=== PATIENT | female | born 1960 | race Caucasian/White ===

== ENCOUNTER 2023-06-25 20:18 | Emergency (ER) | payer OTHER, SELFPAY ==
--- NOTE | ~2023-06-25 | CT_ITS ---
EXAMINATION: CT abdomen pelvis w con DATE: 06/26/2023 00:23 INDICATION: Acute cholecystitis. TECHNIQUE: Computed tomography (CT) of the abdomen and pelvis was performed with 100 mL Omnipaque 350 intravenous contrast. Automated exposure control and iterative reconstruction technique were employe d. The dose-length product was 776.41 mGy-cm. COMPARISON: None. FINDINGS: The visualized portions of the lung bases demonstrate mild atelectasis. No pleural effusion . The heart size is normal. No pericardial effusion. There is a small sliding hiatal hernia. There is diffuse hepatic steatosis. There are gallstones in the gallbladder, which is normal in size. The spl een, pancreas, adrenal glands, and kidneys are normal. There is an umbilical hernia containing fat. T he appendix is normal. There are no dilated loops of bowel. There is diverticulosis of the colon with out evidence of diverticulitis. There is a 2.5 cm subserosal fibroid. There are no pathologically enl arged lymph nodes. There is no ascites. There is severe lower lumbar spondylosis. IMPRESSION: 1. Cholelithiasis. 2. Umbilical hernia containing fat. 3. Small sliding hiatal hernia. Reviewed, dictated and finalized at location A.
[2023-06-25 20:21] VITALS: BP 149/81; PULSE 71; RESP 16; TEMP 36.1; O2SAT 100
[2023-06-25 20:35] LABS: Basophils Absolute Auto 0.1 K/mm3 (0.0-0.1); Basophils Percent Auto 0.5 % (0.2-1.2); Eosinophils Percent Auto 0.3 % (0-4.4); Hemoglobin 14.5 g/dL (12.0-15.0); Immature Granulocyte Absolute 0.06 K/mm3 (0.00-0.031); Immature Granulocyte Percent A 0.5 % (0-0.5); Lymphocytes Absolute Auto 0.96 K/mm3 (0.9-3.2); Lymphocytes Percent Auto 7.5 % (18.3-44.2); Mean Corpuscular HGB Conc 33.7 g/dl (32-36); Mean Corpuscular Volume 91.9 fl (80-100); Mean Platelet Volume 9.1 fl (7.4-10.4); Monocytes Absolute Auto 0.5 K/mm3 (0.1-0.6); Monocytes Percent Auto 3.6 % (2.6-8.5); Neutrophils Absolute Auto 11.3 K/mm3 (1.3-6.7); Neutrophils Percent Auto 87.6 % (45.5-73.1); Platelet Count Result 350 k/mm3 (150-375); Red Blood Count 4.68 M/mm3 (4.2-5.4); Red Cell Distribution Width 12.8 % (11.5-14.5); White Blood Count 12.8 K/mm3 (4.5-10.0)
[2023-06-25 20:55] LABS: Alanine Aminotransferase 27 U/L (6-35); Albumin Level 4.8 g/dL (3.5-5.1); Alkaline Phosphatase 108 U/L (38-126); Anion Gap 9 mmol/L (8-16); Aspartate Amino Transferase 26 U/L (14-36); Bilirubin,Total 0.5 mg/dL (0.2-1.3); Blood Urea Nitrogen 17 mg/dL (7-17); Calcium 9.7 mg/dL (8.4-10.2); Carbon Dioxide 26 mmol/L (22-30); Chloride 102 mmol/L (98-107); Estimated CRCL calculation 54 ml/min; Estimated Glomerular Filt Rate 56; Glucose 137 mg/dL (65-110); Lipase 143 U/L (23-300); Potassium 4.4 mmol/L (3.4-5.0); Sodium 137 mmol/L (137-145)
--- NOTE | 2023-06-25 23:34 | ECG_ITS ---
Measurements Intervals [place] Rate: 105 P: 48 NE: 148 QRS: 4 QRSD: 101 T: 10 QT: 355 QTc: 470 Interpretive Statements SINUS TACHYCARDIA LOW QRS VOLTAGE IN PRECORDIAL LEADS [QRS DEFLECTION < 1.0 mV IN CHEST LEADS] ABNORMAL RHYTHM ECG NO PREVIOUS ECG AVAILABLE FOR COMPARISON Electronically Signed On 06-26-2023 15:19:56 CDT by Doris Babb M.D.
--- NOTE | 2023-06-25 23:36 | ED.ABDPAIN ---
HPI - Abdominal Pain General Chief Complaint: Abdominal Pain <PEPE Flanagan Last Filed: 06/26/23 03:45> Stated Complaint: abd pain, vomiting <PEPE Flanagan Last Filed: 06/26/23 03:45> Time Seen by Provider: 06/25/23 23:22 <Corrie Rodriguez PA-C - Last Filed: 06/26/23 03:45> History of Present Illness HPI narrative: 63-year-old female reports for evaluation for epigastric and right upper quadrant pain since 1300 today. Patient states that she sandwich for lunch and shortly after began developing her symptoms. States the pain started with scapular pain and then transition to her abdomen. She reports approximately 7 episodes of vomiting with associated nausea. Last bowel movement today was normal. Denies diarrhea, hematemesis, coffee-ground emesis, fever, body aches or chills, dysuria or hematuria, flank pain. She has not taken anything for pain. <PEPE Flanagan Last Filed: 06/26/23 03:45> Related Data Allergies/Adverse Reactions: Allergies Allergy/AdvReac Type Severity Reaction Status Date / Time No Known Allergies Allergy Verified 06/26/23 00:02 <PEPE Flanagan Last Filed: 06/26/23 03:45> Review of Systems Review of Systems: CONSTITUTIONAL: Denies fever, chills EYES: Denies visual changes, redness, or discharge. ENT: Denies rhinorrhea, congestion, sore throat, or otalgia. CARDIOVASCULAR: Denies chest pain, palpitations, or edema. RESPIRATORY: Denies cough or dyspnea. GASTROINTESTINAL: See HPI GENITOURINARY: Denies dysuria or hematuria. SKIN: Denies rash or itching. MUSCULOSKELETAL: See HPI NEUROLOGIC: Denies headache, numbness, dizziness, or weakness. PSYCHIATRIC: Denies anxiety or depression. <PEPE Flanagan Last Filed: 06/26/23 03:45> Exam Narrative: GENERAL: Well-appearing, in no acute distress. Patient resting comfortably in exam bed. She is pleasant and conversational. HEAD: Normocephalic EYES: PERRLA ENT: Nares clear. Mucous membranes moist. Oropharynx without tonsillar hypertrophy exudate or other lesions. NECK: Supple. CHEST: No respiratory distress. Clear to auscultation, no adventitious breath sounds. HEART: Regular rate and rhythm. No murmur heard. Normal peripheral pulses. ABDOMEN: Normal active bowel sounds. Abdomen soft with tenderness and guarding in the right upper quadrant. Positive Hernandez's. No CVA tenderness. No rebound or rigidity. No overlying skin changes. BACK: No midline thoracolumbar spinous tenderness, step-offs or deformities. EXTREMITIES: Normal range of motion. No edema. SKIN: Warm, dry, no rash. NEURO: No focal deficits. Alert and oriented x3. PSYCH: Normal mood and affect. <Corrie Rodriguez PA-C - Last Filed: 06/26/23 03:45> Course BRIDGE WORKER/PA Physician Supervision This is a was performed by both a physician and an APC. I performed all aspects of the MDM as documented w/ the following additions: 63-year-old female presenting with right upper quadrant abdominal pain. Improved with pain medicine. Mild white count but no fevers. No elevation in liver enzymes. Point of care all right upper quadrant ultrasound was reassuring. Suspect biliary colic. Discharge primary care and general surgery follow-upAll questions answered. Patient in agreement w/ disposition. <Unruly Castelan MD - Last Filed: 06/26/23 07:00> Vital Signs Vital signs: Vital Signs Temperature 96.9 F L 06/25/23 20:21 Pulse Rate 71 06/25/23 20:21 Respiratory Rate 16 06/25/23 20:21 Blood Pressure 149/81 H 06/25/23 20:21 Pulse Oximetry 100 06/25/23 20:21 Oxygen Delivery Room Air 06/25/23 20:21 Temperature 96.9 F L 06/25/23 20:21 Pulse Rate 100 06/26/23 04:03 Respiratory Rate 18 06/26/23 04:03 Blood Pressure 104/68 06/26/23 04:03 Pulse Oximetry 100 06/26/23 04:03 Oxygen Delivery Room Air 06/25/23 20:21 <Corrie Rodriguez PA-C - Last Filed: 06/26/23 03:45>
[2023-06-26] MEDS: SODIUM CHLORIDE 0.9% IV 1,000 ML 999 ML IV CONT (00:01)
[2023-06-26] MEDS: ONDANSETRON INJ 4 MG/2 ML VIAL IV PUSH (00:02)
[2023-06-26] MEDS: KETOROLAC 30 MG/ML VIAL (*BKC) IV PUSH (00:02)
[2023-06-26 00:28] LABS: Appearance Urine Clear (Clear); Bacteria Urine None Seen /hpf; Bilirubin Urine Negative (Negative); Blood Urine Negative (Negative); Color Urine Yellow (Yellow); Glucose Urine UA Negative (Negative); Ketones Urine 1+ mg/dL (Negative); Leukocyte Esterase Ur Trace LEU/UL (Negative); Nitrate Urine Negative (Negative); Non Pathogenic Casts 0-2; Protein Urine 1+ mg/dL (Negative); RBC Urine 0-2 /hpf (0-2); Specific Grav Ur 1.023 (1.001-1.035); Squamous Epithelial Cell Urine None seen /hpf (Few); Urobilinogen Urine 0.2 mg/dL (<2.0); WBC Urine 0-5 /hpf; pH Urine 7.5 (5.0-9.0)
[2023-06-26 01:00] LABS: Add Urine Microscopic? YES
[2023-06-26] MEDS: MORPHINE SULFATE (*CRX) 4 MG/ML INJ IV PUSH (01:53)
[2023-06-26 03:15] VITALS: BP 119/69; O2SAT 98
[2023-06-26 03:16] VITALS: O2SAT 97
[2023-06-26 03:30] VITALS: O2SAT 98
[2023-06-26 03:31] VITALS: BP 112/77; O2SAT 100
[2023-06-26 03:45] VITALS: BP 104/64; O2SAT 99
[2023-06-26 04:03] VITALS: BP 104/68; PULSE 100; RESP 18; O2SAT 100
--- NOTE | 2023-06-26 12:22 | ED.ABDPAIN ---
HPI - Abdominal Pain General Chief Complaint: Abdominal Pain Stated Complaint: abd pain, vomiting Time Seen by Provider: 06/25/23 23:22 Related Data Allergies Allergy/AdvReac Type Severity Reaction Status Date / Time No Known Allergies Allergy Verified 06/26/23 00:02 Course HISTORICAL MANUSCRIPTS CURATOR/PA Physician Supervision Patient return to the ED due to being unable to have her prescription filled since there is no SHRUTI number on the prescription. Patient prescription was reprinted Vital Signs Vital signs: Vital Signs Temperature 96.9 F L 06/25/23 20:21 Pulse Rate 71 06/25/23 20:21 Respiratory Rate 16 06/25/23 20:21 Blood Pressure 149/81 H 06/25/23 20:21 Pulse Oximetry 100 06/25/23 20:21 Oxygen Delivery Room Air 06/25/23 20:21 Temperature 96.9 F L 06/25/23 20:21 Pulse Rate 100 06/26/23 04:03 Respiratory Rate 18 06/26/23 04:03 Blood Pressure 104/68 06/26/23 04:03 Pulse Oximetry 100 06/26/23 04:03 Oxygen Delivery Room Air 06/25/23 20:21 MDM - Abdominal Pain Lab Data 06/25/23 20:27 06/25/23 20:27 Labs: Lab Results 06/25/23 06/26/23 Range/Units 20:27 00:07 WBC 12.8 H (4.5-10.0) K/mm3 RBC 4.68 (4.2-5.4) M/mm3 Hgb 14.5 (12.0-15.0) g/dL Hct 43.0 (37.0-47.0) % MCV 91.9 (80-100) fl MCH 31.0 (26-34) pg MCHC 33.7 (32-36) g/dl RDW 12.8 (11.5-14.5) % Plt Count 350 (150-375) k/mm3 MPV 9.1 (7.4-10.4) fl Immature Gran % (Auto) 0.5 (0-0.5) % Neut % (Auto) 87.6 H (45.5-73.1) % Lymph % (Auto) 7.5 L (18.3-44.2) % [place] % (Auto) 3.6 (2.6-8.5) % Eos % (Auto) 0.3 (0-4.4) % Baso % (Auto) 0.5 (0.2-1.2) % Lymph # (Auto) 0.96 (0.9-3.2) K/mm3 [place] # (Auto) 0.5 (0.1-0.6) K/mm3 Eos # (Auto) 0.0 (0-0.3) K/mm3 Baso # (Auto) 0.1 (0.0-0.1) K/mm3 Abs Immat Gran (auto) 0.06 H (0.00-0.031) K/mm3 Absolute Neuts (auto) 11.3 H (1.3-6.7) K/mm3 Absolute Nucleated RBC 0.0 (0.0-0.012) K/mm3 Nucleated RBC % 0.0 (0.0-0.2) % Sodium 137 (137-145) mmol/L Potassium 4.4 (3.4-5.0) mmol/L Chloride 102 (98-107) mmol/L Carbon Dioxide 26 (22-30) mmol/L Anion Gap 9 (8-16) mmol/L BUN 17 (7-17) mg/dL Creatinine 1.00 (0.7-1.0) mg/dL Estim Creat Clear Calc 54 ml/min Estimated GFR 56 L (59 - ) Glucose 137 H (65-110) mg/dL Calcium 9.7 (8.4-10.2) mg/dL Total Bilirubin 0.5 (0.2-1.3) mg/dL AST 26 (14-36) U/L ALT 27 (6-35) U/L Alkaline Phosphatase 108 (38-126) U/L Total Protein 9.0 H (6.3-8.2) g/dL Albumin 4.8 (3.5-5.1) g/dL Lipase 143 (23-300) U/L Urine Color Yellow (Yellow) Urine Appearance Clear (Clear) Urine pH 7.5 (5.0-9.0) Ur Specific [place] 1.023 (1.001-1.035) Urine Protein 1+ H (Negative) mg/dL Urine Glucose (UA) Negative (Negative) mg/dL Urine Ketones 1+ H (Negative) mg/dL Ur Blood (Man) Negative (Negative) Urine Nitrate Negative (Negative) Urine Bilirubin Negative (Negative) Urine Urobilinogen 0.2 (<2.0) mg/dL Leukocyte Esterase Rfl Trace H (Negative) TRAVIS/UL Urine RBC 0-2 (0-2) /hpf Urine WBC 0-5 /hpf Ur Squamous Epith Cells None seen (Few) /hpf Urine Bacteria None seen /hpf Urine Casts 0-2 Imaging Data Radiologist's impression: ITS Impressions Abdomen/Pelvis CT 06/26/23 06:09 IMPRESSION: 1. Cholelithiasis. 2. Umbilical hernia containing fat. 3. Small sliding hiatal hernia. Discharge Plan Discharge Clinical Impression: Biliary colic Patient Disposition: Home, Self-Care Condition: Stable Instructions: Antibiotic Form, Biliary Colic (ED) Additional Instructions: You were evaluated in the ED for abdominal pain. Your labs and imaging are reassuring. You CT scan shows gallstones, uterine fibroids and fatty liver. The gallstones are likely the cause of your pain as discussed. I have sent pain and nausea medications to the pharmacy.
== END 2023-06-26 04:08 | disposition home or self-care (01) ==
PROVIDERS: Emergency Medicine; Emergency Provider Physician Assistant; PCP Family Medicine
DX: K80.70 Calculus of gallbladder and bile duct without cholecystitis without obstruction (principal); K44.9 Diaphragmatic hernia without obstruction or gangrene; R00.0 Tachycardia, unspecified
CPT/HCPCS: 36415; 74177; 80053; 81001; 83690; 85025; 93005; 96361; 96374; 96375; 99284; J1885; J2270; J2405; J7030; Q9967

== ENCOUNTER 2023-07-26 08:30 | Outpatient (CLI) | payer OTHER, SELFPAY ==
[2023-07-26 09:06] LABS: Amylase 98 U/L (30-110)
== END 2023-07-26 08:31 | disposition home or self-care (01) ==
PROVIDERS: Visit Provider Surgery
DX: Z01.812 Encounter for preprocedural laboratory examination (principal); K80.10 Calculus of gallbladder with chronic cholecystitis without obstruction
CPT/HCPCS: 36415; 82150; 86850; 86900; 86901

== ENCOUNTER 2023-07-31 00:28 | Day surgery (SDC) | payer OTHER, SELFPAY ==
[2023-07-24 13:37] VITALS: BMI 28.9
--- NOTE | 2023-07-24 13:42 | PC.NURSE ---
Report to the Outpatient Waiting Room, entrance under the green pavilion located off [facility], at time 11:30 on date 07/31/23. Planned Procedure Time: 1:30. Time changes happen often and if your time is changed the preop area will call you the afternoon before. - You and your visitor will be asked to self-screen and do not enter if you have any COVID symptoms. - A mask is optional within the hospital at this time. Patients may have clear liquids (water, carbonated beverages, clear teas, apple juice) until 3 hours prior to surgery (10:30) with a maximum of 20 ounces. - No food from midnight until time of surgery Take the following medications with a SIP of water the morning of surgery: N/A DO NOT STOP ANY OF YOUR OTHER PRESCRIPTION MEDICATIONS PRIOR TO SURGERY ?EXCEPT THE FOLLOWING Medications to discontinue per physician: N/A Date to take last dose: N/A Please no make-up, nail [place], hairspray, perfume, deodorant, or body powder the day of surgery. No jewelry (including any body piercings) or valuables the day of surgery, leave them at home. Please take a shower or bath the night before, or the morning of, surgery with an antibacterial soap (HIBICLENS). Wear comfortable, loose fitting clothing. - Jewelry must be removed prior to entering the operating room. Rings and piercings that are not removed may be cut off. - The hospital will not accept responsibility for valuables. - Please leave all valuables, including medications, at home the day of surgery. If you are going home after surgery, a licensed driver helper must drive you home. - NO public transportation without another adult if you receive anesthesia. - We recommend that an adult stay with you for 24 hours following discharge. - We also recommend that you do not drive, make important decision, drink alcoholic beverages, or take any drugs that were not prescribed by your health care provider for at least 24 hours after your discharge time. Follow any additional instructions given to you from your surgeon. If you or anyone in your household have experienced Covid symptoms in the past week, please notify your surgeon or the nurse liaison at the phone number below for possible testing. Telephone instructions given to PT - MARYCRUZ CUNNINGHAM and asked if any additional questions and then verbalized understanding. Patient advised to call surgeon office or pre surgery nurse liaison [phone] if any additional questions.
[2023-07-31] VITALS (11 sets, daily range): BP systolic 102–118; BP diastolic 62–81; PULSE 76–95; RESP 14–22; TEMP 36.2–36.4; O2SAT 97–100
--- NOTE | 2023-07-31 11:02 | WPDHPUPDATE1 ---
History and Physical Update Update Date/Time: 07/31/23 11:02 History and Physical has been reviewed, including an updated exam of the patient. There are NO changes in the patient's condition. Risks, benefits, and alternatives have been discussed and questions answered. Patient agrees to proceed with procedure.
--- NOTE | 2023-07-31 12:25 | WPDANESEPPF ---
Anes - Initial Pre Proc Eval Procedure: Operation Date: 07/31/23 13:30 Proposed Procedures p Laparoscopic Cholecystectomy - Diann Ramsey MD Date/Time: 07/31/23 12:25 Surgeon: Diann Ramsey MD Pre Op Diagnosis: Chr Calculous Cholecystitis Patient Data Age: 63 Gender: F Height: 1.65 m Weight: 78.95 kg Allergies Allergy/AdvReac Type Severity Reaction Status Date / Time No Known Allergies Allergy Verified 07/24/23 13:37 Home Medications Medication Instructions Recorded Confirmed Type No Home Medications 07/24/23 07/24/23 History Patient hx anesthesia problems: none Family hx anesthesia problems: none Results Review: All pre-operative results and documents have been reviewed as part of the pre-operative evaluation. 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 Informed Consent: The patient's anesthetic plan and its attendant risks and benefits were discussed with the patient/family/POA. Questions were solicited and answers provided to the satisfaction of the patient/family/POA.
[2023-07-31] MEDS: KETOROLAC 15 MG/ML VIAL (*BKC) IV PUSH (12:30)
[2023-07-31] MEDS: LACTATED RINGERS 1,000 ML 30 ML IV CONT ×2 (12:30→14:27)
[2023-07-31] MEDS: ACETAMINOPHEN 500 MG TABLET 1000 MG PO (12:30)
[2023-07-31] MEDS: ceFAZolin 2 GM/D5W 50 ML 2 GM/50 ML BAG IVPB (13:14)
[2023-07-31] MEDS: BUPIVACAINE/EPINEPHRINE 0.5% 30 ML VIAL INFILTRATE (13:46)
--- NOTE | 2023-07-31 14:17 | W.PM.PROC2 ---
Procedure Note - Detailed Date of Procedure 07/31/23 Pre-op Diagnosis Cholecystitis, cholelithiasis Post-op Diagnosis Same Procedure Performed Laparoscopic cholecystectomy Surgeon Diann Ramsey MD Anesthesia General Indications 63-year-old female presenting to the office complaining right upper quadrant abdominal pain, nausea, bloating. Workup is significant for cholecystitis, cholelithiasis. Findings Acute cholecystitis with cholelithiasis Description of Procedure The patient was taken to the operating room placed in the supine position. After adequate induction of general anesthesia, the patient was prepped and draped in normal sterile fashion. A time-out was then performed to verify the patient's identity as well as the procedure being performed. I then made a 5 mm incision in the infraumbilical region. Through this, a Veress needle was placed into the peritoneal cavity and CO2 gas was then insufflated. After adequate pneumoperitoneum was achieved, the Veress needle was removed and a 5 mm optiview trocar was placed through this incision under direct visualization. I then placed the laparoscope through this trocar site and under direct visualization placed a further 12 mm subxiphoid port as well as 2 additional 5 mm ports in the right upper abdomen. The gallbladder was then identified and was noted to be inflamed, distended, and full of gallstones. there was a dense amount of omental adhesions to the appendix and gallbladder and these were taken down with the Bovie cautery. I was then able to place a grasper at the dome of the gallbladder and this was retracted anterior and cephalad up over the liver. A 2nd retractor was then placed at the infundibulum and retracted laterally, this allowed visualization of the triangle of Calot. I then was able to visualize the cystic duct in its entirety from its proximal insertion into the gallbladder, to its distal junction with the common hepatic/common bile duct junction. At this point, I carefully skeletonized the proximal cystic duct with the [place] dissector. I then clipped and transected the proximal cystic duct. Next I visualized the cystic artery. Again the artery was skeletonized, clipped, and transected. I then used the Bovie cautery to take down the peritoneal attachments of the gallbladder off the liver bed. Once the gallbladder specimen was completely detached, an endo-pouch was placed through the 12 mm port site. I then placed the gallbladder specimen into the Endo pouch and removed the endo-pouch from the 12 mm port site. The specimen will now be sent to pathology for further review. I then copiously irrigated the right upper quadrant. Some mild oozing was noted in the liver bed and this was controlled with the bovie cautery. Hemostasis was noted in the liver bed, the clips were noted to be in good position on both the cystic duct stump and the cystic artery stump. No other pathology was noted in the right upper quadrant. I then moved the laparoscope to the subxiphoid port. No iatrogenic injury or other pathology was noted in the lower abdomen. I then closed the 12 mm trocar site under direct visualization using the Ko cone and 0 Vicryl suture. At this point, the abdomen was desufflated and all ports removed. All port sites were then closed with 4.O Monocryl subcuticular sutures. Dermabond was placed on each incision. The patient tolerated the procedure well, was extubated in the operating room postoperative and will be transferred to the recovery room in stable condition Estimated Blood Loss 10 Drains No Packing No Pathology Yes Complications No immediate complications Condition Stable Disposition PACU [facility] Billing Surgery - Charge Forward: Surgery Billing
[2023-07-31] MEDS: fentaNYL CITRATE INJ (*CRX) 100 MCG/2 ML VIAL 25 MCG IV PUSH (14:55)
[2023-07-31] MEDS: oxyCODONE HCL (*CRX) 5 MG TAB IR PO (15:56)
== END 2023-07-31 16:50 | disposition home or self-care (01) ==
PROVIDERS: Visit Provider Surgery
PROC: 0FT44ZZ Resection of Gallbladder, Percutaneous Endoscopic Approach (ICD-10-PCS; CPT 47562; principal; 2023-07-31 13:30)
DX: K80.10 Calculus of gallbladder with chronic cholecystitis without obstruction (principal)
CPT/HCPCS: 47562; 36415; 82150; 86850; 86900; 86901; 88304; A9270; J0690; J1100; J1885; J2250; J2405; J2704; J3010; J7120